=== PATIENT | female | born 1965 | race Caucasian/White ===

== ENCOUNTER 2016-09-18 19:08 | Emergency (ER) | payer SELFPAY ==
[~2016-09-18] VITALS: Ht 160 cm; Wt 61.0 kg
[2016-09-18 19:26] VITALS: BP 141/93
== END 2016-09-18 20:26 | disposition left against medical advice (07) ==
LOC: ER 19:38
DX: Z53.21 Procedure and treatment not carried out due to patient leaving prior to being seen by health care provider (principal)

== ENCOUNTER 2017-07-10 03:55 | Emergency (ER) | payer MEDICAID ==
[~2017-07-10] VITALS: Ht 167.6 cm; Wt 63.5 kg
[2017-07-10] MEDS ORDERED: LIDOCAINE HCL 1% 20ML VIAL (Pyxis) INJ MC ONE (04:45)
[2017-07-10] MEDS ORDERED: BACITRACIN ZINC OINT UDPKT TOP ONE (04:45)
[2017-07-10] MEDS ORDERED: TETANUS, DIPHTHERIA, PERTUSSIS VAC/PF 0.5ML (>7YR OLD) IM ONE (04:45)
[2017-07-10] MEDS ORDERED: HYDROCODONE/ACETAMINOPHEN 5/325MG TABLET PO ONE (04:45)
[2017-07-10 07:30] VITALS: BP 124/68
== END 2017-07-10 07:34 | disposition home or self-care (01) ==
LOC: ER 03:55 → EDUNIT# 03:55 → ER 07:34
DX: S02.2XXA Fracture of nasal bones, initial encounter for closed fracture (principal); S01.81XA Laceration without foreign body of other part of head, initial encounter; S01.511A Laceration without foreign body of lip, initial encounter; R07.89 Other chest pain; E11.9 Type 2 diabetes mellitus without complications; Y04.2XXA Assault by strike against or bumped into by another person, initial encounter; Y93.89 Activity, other specified; Y92.9 Unspecified place or not applicable; Z23 Encounter for immunization
CPT/HCPCS: 12014; 70450; 70486; 71045; 72125; 90471; 90715; 99284; J3490